=== PATIENT | female | born 1955 | race Caucasian/White ===

== ENCOUNTER 2019-11-18 14:05 | Outpatient (REF) | payer OTHER, SELFPAY ==
[2019-11-18 15:27] LABS: Abs Immature Grans 0.07 k/cumm (0.0-0.09); Absolute Basophil Count 0.04 k/cumm (0.0-0.2); Absolute Eosinophil Count 0.16 k/cumm (0.0-0.7); Absolute Lymphocyte Count 1.73 k/cumm (1.2-3.4); Absolute Monocyte Count 0.57 k/cumm (0.11-0.7); Absolute Neutrophil Count 7.23 k/cumm (1.2-6.7); Basophils % 0.4; Eosinophils % 1.6; HCT 36.9 % (36.0-46.0); HGB 11.2 g/dL (12.0-15.5); Immature Grans % 0.7 %; Lymphocytes % 17.7; Mean Corp. HGB Concentration 30.4 g/dL (32.0-36.0); Mean Corpuscular Hemoglobin 29.7 pg (27.0-33.0); Mean Corpuscular Volume 97.9 fL (80-95); Mean Platelet Volume 9.4 fL (8.0-11.0); Monocytes % 5.8; Neutrophils % 73.8; Platelet Count 660 x1000/uL (130-400); RBC 3.77 m/cumm (4.00-5.20); RBC Distribution Width 14.1 % (11.7-14.6)
[2019-11-18 15:34] LABS: ALT 28 U/L (14-59); AST 22 U/L (15-37); Alkaline Phosphatase 94 U/L (46-116); Anion Gap 10.1 mmol/L (3-11); BUN 16 mg/dL (7-18); Bilirubin, Total 0.4 mg/dL (0.2-1.0); C-Reactive Protein 11.17 mg/dL (0.0-0.3); CO2 26.9 mmol/L (21.0-32.0); CREATININE 0.63 mg/dL (0.55-1.02); Calcium 10.1 mg/dL (8.5-10.1); Chloride 103 mmol/L (98-107); Glucose 119 mg/dL (74-106); Potassium 4.9 mmol/L (3.5-5.1); Sodium 140 mmol/L (136-145); Total Protein 6.8 g/dL (6.4-8.2)
[2019-11-18 16:46] LABS: RBC Morphology Normal
[2019-11-18 19:04] LABS: ESR 103 mm/hr (0-30)
== END 2019-11-18 14:25 ==
LOC: LBN 14:05
PROVIDERS: PCP Orthopaedic Surgery Adult Reconstructive Orthopaedic Surgery; Visit Provider Internal Medicine Infectious Disease
DX: T84.53XD Infection and inflammatory reaction due to internal right knee prosthesis, subsequent encounter (principal)
CPT/HCPCS: 80053; 85652; 85025; 86140

== ENCOUNTER 2019-11-25 12:23 | Outpatient (REF) | payer OTHER, SELFPAY ==
[2019-11-25 13:31] LABS: Abs Immature Grans 0.06 k/cumm (0.0-0.09); Absolute Basophil Count 0.04 k/cumm (0.0-0.2); Absolute Eosinophil Count 0.32 k/cumm (0.0-0.7); Absolute Lymphocyte Count 0.97 k/cumm (1.2-3.4); Absolute Neutrophil Count 4.05 k/cumm (1.2-6.7); Basophils % 0.7; Eosinophils % 5.5; HCT 37.7 % (36.0-46.0); HGB 11.5 g/dL (12.0-15.5); Lymphocytes % 16.6; Mean Corp. HGB Concentration 30.5 g/dL (32.0-36.0); Mean Corpuscular Hemoglobin 29.9 pg (27.0-33.0); Mean Corpuscular Volume 98.2 fL (80-95); Mean Platelet Volume 9.9 fL (8.0-11.0); Monocytes % 6.8; Neutrophils % 69.4; Platelet Count 482 x1000/uL (130-400); RBC 3.84 m/cumm (4.00-5.20); White Blood Cell Count 5.84 k/cumm (4.4-10.8)
[2019-11-25 14:49] LABS: ALT 28 U/L (14-59); AST 22 U/L (15-37); Albumin 3.1 g/dL (3.4-5.0); Alkaline Phosphatase 86 U/L (46-116); Anion Gap 9.6 mmol/L (3-11); BUN 15 mg/dL (7-18); Bilirubin, Total 0.3 mg/dL (0.2-1.0); C-Reactive Protein 4.34 mg/dL (0.0-0.3); CO2 27.4 mmol/L (21.0-32.0); CREATININE 0.73 mg/dL (0.55-1.02); Calcium 10.1 mg/dL (8.5-10.1); Chloride 104 mmol/L (98-107); Glucose 96 mg/dL (74-106); Potassium 4.9 mmol/L (3.5-5.1); Sodium 141 mmol/L (136-145); Total Protein 6.7 g/dL (6.4-8.2)
[2019-11-25 15:03] LABS: ESR 61 mm/hr (0-30)
== END 2019-11-25 12:43 ==
LOC: LBN 12:23
PROVIDERS: PCP Orthopaedic Surgery Adult Reconstructive Orthopaedic Surgery; Visit Provider Internal Medicine Infectious Disease
DX: T84.53XD Infection and inflammatory reaction due to internal right knee prosthesis, subsequent encounter (principal); M25.561 Pain in right knee
CPT/HCPCS: 80053; 85652; 85025; 86140

== ENCOUNTER 2019-12-02 11:32 | Outpatient (REF) | payer OTHER, SELFPAY ==
[2019-12-02 11:43] LABS: Abs Immature Grans 0.02 k/cumm (0.0-0.09); Absolute Basophil Count 0.09 k/cumm (0.0-0.2); Absolute Lymphocyte Count 1.39 k/cumm (1.2-3.4); Absolute Monocyte Count 0.38 k/cumm (0.11-0.7); Absolute Neutrophil Count 3.24 k/cumm (1.2-6.7); Basophils % 1.7; Eosinophils % 3.8; HCT 38.1 % (36.0-46.0); HGB 11.6 g/dL (12.0-15.5); Immature Grans % 0.4 %; Lymphocytes % 26.1; Mean Corp. HGB Concentration 30.4 g/dL (32.0-36.0); Mean Corpuscular Hemoglobin 29.7 pg (27.0-33.0); Mean Corpuscular Volume 97.4 fL (80-95); Monocytes % 7.1; Neutrophils % 60.9; Platelet Count 524 x1000/uL (130-400); RBC 3.91 m/cumm (4.00-5.20); White Blood Cell Count 5.32 k/cumm (4.4-10.8)
[2019-12-02 12:03] LABS: ALT 36 U/L (14-59); AST 15 U/L (15-37); Albumin 3.2 g/dL (3.4-5.0); Alkaline Phosphatase 84 U/L (46-116); Anion Gap 10.8 mmol/L (3-11); Bilirubin, Total 0.3 mg/dL (0.2-1.0); C-Reactive Protein 4.02 mg/dL (0.0-0.3); CO2 25.2 mmol/L (21.0-32.0); CREATININE 0.69 mg/dL (0.55-1.02); Chloride 104 mmol/L (98-107); Glucose 112 mg/dL (74-106); Potassium 4.6 mmol/L (3.5-5.1); Sodium 140 mmol/L (136-145); Total Protein 6.8 g/dL (6.4-8.2)
[2019-12-02 12:13] LABS: BUN 24 mg/dL (7-18)
[2019-12-02 13:24] LABS: ESR 59 mm/hr (0-30)
== END 2019-12-02 11:52 ==
LOC: LBN 11:32
PROVIDERS: PCP Orthopaedic Surgery Adult Reconstructive Orthopaedic Surgery; Visit Provider Internal Medicine Infectious Disease
DX: M25.561 Pain in right knee (principal); Z96.651 Presence of right artificial knee joint; T84.53XD Infection and inflammatory reaction due to internal right knee prosthesis, subsequent encounter
CPT/HCPCS: 80053; 85652; 85025; 86140

== ENCOUNTER 2019-12-09 18:48 | Outpatient (REF) | payer OTHER, SELFPAY ==
[2019-12-09 15:06] LABS: Abs Immature Grans 0.01 k/cumm (0.0-0.09); Absolute Basophil Count 0.08 k/cumm (0.0-0.2); Absolute Eosinophil Count 0.12 k/cumm (0.0-0.7); Absolute Lymphocyte Count 1.22 k/cumm (1.2-3.4); Absolute Monocyte Count 0.47 k/cumm (0.11-0.7); Absolute Neutrophil Count 3.23 k/cumm (1.2-6.7); Basophils % 1.6; Eosinophils % 2.3; HCT 39.8 % (36.0-46.0); HGB 12.1 g/dL (12.0-15.5); Immature Grans % 0.2 %; Lymphocytes % 23.8; Mean Corp. HGB Concentration 30.4 g/dL (32.0-36.0); Mean Corpuscular Hemoglobin 29.9 pg (27.0-33.0); Mean Corpuscular Volume 98.3 fL (80-95); Mean Platelet Volume 10.2 fL (8.0-11.0); Monocytes % 9.2; Neutrophils % 62.9; Platelet Count 479 x1000/uL (130-400); RBC 4.05 m/cumm (4.00-5.20); RBC Distribution Width 14.2 % (11.7-14.6); White Blood Cell Count 5.13 k/cumm (4.4-10.8)
[2019-12-09 15:13] LABS: ALT 38 U/L (14-59); AST 21 U/L (15-37); Albumin 3.4 g/dL (3.4-5.0); Alkaline Phosphatase 82 U/L (46-116); Anion Gap 5.9 mmol/L (3-11); BUN 21 mg/dL (7-18); Bilirubin, Total 0.3 mg/dL (0.2-1.0); C-Reactive Protein 1.51 mg/dL (0.0-0.3); CO2 29.1 mmol/L (21.0-32.0); CREATININE 0.67 mg/dL (0.55-1.02); Calcium 9.9 mg/dL (8.5-10.1); Chloride 104 mmol/L (98-107); Glucose 92 mg/dL (74-106); Potassium 4.7 mmol/L (3.5-5.1); Sodium 139 mmol/L (136-145); Total Protein 6.6 g/dL (6.4-8.2)
[2019-12-09 15:51] LABS: ESR 29 mm/hr (0-30)
== END 2019-12-09 19:08 ==
LOC: LBN 18:48
PROVIDERS: PCP Orthopaedic Surgery Adult Reconstructive Orthopaedic Surgery; Visit Provider Internal Medicine Infectious Disease
DX: M25.561 Pain in right knee (principal); Z96.651 Presence of right artificial knee joint; T84.53XD Infection and inflammatory reaction due to internal right knee prosthesis, subsequent encounter
CPT/HCPCS: 80053; 85652; 85025; 86140

== ENCOUNTER 2019-12-16 10:32 | Outpatient (REF) | payer OTHER, SELFPAY ==
[2019-12-16 11:58] LABS: HCT 40.5 % (36.0-46.0); HGB 12.4 g/dL (12.0-15.5); Mean Corp. HGB Concentration 30.6 g/dL (32.0-36.0); Mean Corpuscular Hemoglobin 29.7 pg (27.0-33.0); Mean Corpuscular Volume 97.1 fL (80-95); Mean Platelet Volume 10.5 fL (8.0-11.0); Platelet Count 414 x1000/uL (130-400); RBC 4.17 m/cumm (4.00-5.20)
[2019-12-16 12:19] LABS: ALT 27 U/L (14-59); AST 20 U/L (15-37); Albumin 3.4 g/dL (3.4-5.0); Alkaline Phosphatase 89 U/L (46-116); Anion Gap 8.6 mmol/L (3-11); BUN 16 mg/dL (7-18); Bilirubin, Total 0.2 mg/dL (0.2-1.0); C-Reactive Protein 0.98 mg/dL (0.0-0.3); CO2 26.4 mmol/L (21.0-32.0); CREATININE 0.69 mg/dL (0.55-1.02); Calcium 10.1 mg/dL (8.5-10.1); Chloride 106 mmol/L (98-107); Glucose 88 mg/dL (74-106); Sodium 141 mmol/L (136-145); Total Protein 6.6 g/dL (6.4-8.2)
[2019-12-16 12:48] LABS: ESR 22 mm/hr (0-30)
== END 2019-12-16 10:52 ==
LOC: LBN 10:32
PROVIDERS: PCP Orthopaedic Surgery Adult Reconstructive Orthopaedic Surgery; Visit Provider Internal Medicine Infectious Disease
DX: M25.561 Pain in right knee (principal); Z96.651 Presence of right artificial knee joint; T84.53XD Infection and inflammatory reaction due to internal right knee prosthesis, subsequent encounter
CPT/HCPCS: 80053; 85027; 85652; 86140

== ENCOUNTER 2020-02-28 01:57 | Outpatient (CLI) | payer OTHER, SELFPAY ==
[2020-02-28 16:45] LABS: Abs Immature Grans 0.02 k/cumm (0.0-0.09); Absolute Basophil Count 0.04 k/cumm (0.0-0.2); Absolute Eosinophil Count 0.13 k/cumm (0.0-0.7); Absolute Monocyte Count 0.45 k/cumm (0.11-0.7); Absolute Neutrophil Count 3.29 k/cumm (1.2-6.7); Basophils % 0.7; Eosinophils % 2.3; HCT 40.4 % (36.0-46.0); Immature Grans % 0.3 %; Lymphocytes % 31.4; Mean Corp. HGB Concentration 32.2 g/dL (32.0-36.0); Mean Corpuscular Hemoglobin 30.4 pg (27.0-33.0); Mean Corpuscular Volume 94.6 fL (80-95); Mean Platelet Volume 9.9 fL (8.0-11.0); Monocytes % 7.9; Neutrophils % 57.4; Platelet Count 312 x1000/uL (130-400); RBC 4.27 m/cumm (4.00-5.20); RBC Distribution Width 13.6 % (11.7-14.6); White Blood Cell Count 5.73 k/cumm (4.4-10.8)
[2020-02-28 18:45] LABS: ESR 12 mm/hr (0-30)
[2020-02-28 19:23] LABS: ALT 34 U/L (14-59); AST 22 U/L (15-37); Albumin 3.4 g/dL (3.4-5.0); Alkaline Phosphatase 102 U/L (46-116); Anion Gap 5.7 mmol/L (3-11); BUN 23 mg/dL (7-18); Bilirubin, Total 0.2 mg/dL (0.2-1.0); C-Reactive Protein 1.74 mg/dL (0.0-0.3); CO2 31.3 mmol/L (21.0-32.0); CREATININE 0.63 mg/dL (0.55-1.02); Calcium 10.1 mg/dL (8.5-10.1); Chloride 102 mmol/L (98-107); Glucose 86 mg/dL (74-106); Potassium 4.7 mmol/L (3.5-5.1); Sodium 139 mmol/L (136-145); Total Protein 6.5 g/dL (6.4-8.2)
== END 2020-02-28 02:17 ==
PROVIDERS: PCP Orthopaedic Surgery Adult Reconstructive Orthopaedic Surgery; Visit Provider Internal Medicine
DX: T84.53XA Infection and inflammatory reaction due to internal right knee prosthesis, initial encounter (principal); A49.01 Methicillin susceptible Staphylococcus aureus infection, unspecified site
CPT/HCPCS: 36415; 80053; 85652; 85025; 86140

== ENCOUNTER 2020-08-07 02:19 | Outpatient (CLI) | payer OTHER, SELFPAY ==
[2020-08-07 11:26] LABS: Abs Immature Grans 0.03 10^3/uL (0.0-0.06); Absolute Basophil Count 0.06 10^3/uL (0.0-0.2); Absolute Eosinophil Count 0.18 10^3/uL (0.0-0.7); Absolute Lymphocyte Count 1.43 10^3/uL (1.2-3.4); Absolute Monocyte Count 0.34 10^3/uL (0.1-0.8); Absolute Neutrophil Count 2.95 10^3/uL (1.2-6.7); Basophils % 1.2; Eosinophils % 3.6; HCT 43.7 % (36.0-46.0); HGB 13.8 g/dL (11.2-15.7); Immature Grans % 0.6; Lymphocytes % 28.7; MCH 30.5 pg (27.0-33.0); MCHC 31.6 % (32.0-36.0); MCV 96.5 fL (80-95); MPV 9.7 fL (8.0-11.0); Monocytes % 6.8; Neutrophils % 59.1; Nucleated RBC 0 %; Platelet Count 274 10^3/uL (130-400); RBC 4.53 10^6/uL (3.93-5.22); RDW 12.8 % (11.7-14.6); RDW-SD 45.4 fL; WBC 4.99 10^3/uL (4.4-10.8)
[2020-08-07 12:16] LABS: ALT 26 U/L (14-59); AST 19 U/L (15-37); Albumin 3.6 g/dL (3.4-5.0); Alkaline Phosphatase 82 U/L (46-116); Anion Gap 7.6 mmol/L (3-11); BUN 22 mg/dL (7-18); Bilirubin, Total 0.5 mg/dL (0.2-1.0); C-Reactive Protein 0.12 mg/dL (0.0-0.3); CO2 28.4 mmol/L (21.0-32.0); CREATININE 0.73 mg/dL (0.55-1.02); Chloride 104 mmol/L (98-107); Glucose 91 mg/dL (74-106); Potassium 4.5 mmol/L (3.5-5.1); Sodium 140 mmol/L (136-145); Total Protein 6.4 g/dL (6.4-8.2)
[2020-08-07 12:23] LABS: Calcium 10.2 mg/dL (8.5-10.1)
[2020-08-07 13:03] LABS: ESR 10 mm/hr (0-30)
== END 2020-08-07 02:39 ==
PROVIDERS: PCP Orthopaedic Surgery Adult Reconstructive Orthopaedic Surgery; Visit Provider Internal Medicine
DX: T84.53XA Infection and inflammatory reaction due to internal right knee prosthesis, initial encounter (principal); Z96.651 Presence of right artificial knee joint; A49.01 Methicillin susceptible Staphylococcus aureus infection, unspecified site; Z79.2 Long term (current) use of antibiotics
CPT/HCPCS: 36415; 80053; 85652; 85025; 86140

== ENCOUNTER 2020-10-15 01:25 | Outpatient (CLI) | payer OTHER, SELFPAY ==
[2020-10-15 07:55] LABS: Abs Immature Grans 0.03 10^3/uL (0.0-0.06); Absolute Basophil Count 0.05 10^3/uL (0.0-0.2); Absolute Eosinophil Count 0.24 10^3/uL (0.0-0.7); Absolute Lymphocyte Count 1.72 10^3/uL (1.2-3.4); Absolute Monocyte Count 0.31 10^3/uL (0.1-0.8); Eosinophils % 4.8; HCT 44.1 % (36.0-46.0); HGB 13.6 g/dL (11.2-15.7); Immature Grans % 0.6; Lymphocytes % 34.7; MCH 29.8 pg (27.0-33.0); MCHC 30.8 % (32.0-36.0); MCV 96.7 fL (80-95); MPV 9.5 fL (8.0-11.0); Monocytes % 6.3; Neutrophils % 52.6; Nucleated RBC 0 %; Platelet Count 303 10^3/uL (130-400); RBC 4.56 10^6/uL (3.93-5.22); RDW 12.8 % (11.7-14.6); RDW-SD 46.2 fL; WBC 4.95 10^3/uL (4.4-10.8)
[2020-10-15 09:05] LABS: ALT 27 U/L (14-59); AST 21 U/L (15-37); Albumin 3.7 g/dL (3.4-5.0); Alkaline Phosphatase 76 U/L (46-116); Anion Gap 7.9 mmol/L (3-11); BUN 20 mg/dL (7-18); Bilirubin, Total 0.4 mg/dL (0.2-1.0); CO2 28.1 mmol/L (21.0-32.0); CREATININE 0.69 mg/dL (0.55-1.02); Calcium 9.8 mg/dL (8.5-10.1); Calculated LDL 124 mg/dL (<100); Chloride 106 mmol/L (98-107); Cholesterol 207 mg/dL (<200); Glucose 95 mg/dL (74-106); HDL Cholesterol 73 mg/dL (40-60); Potassium 4.7 mmol/L (3.5-5.1); Sodium 142 mmol/L (136-145); TSH (W/Ref FT4) 3.81 uIU/mL (0.36-3.74); Total Protein 6.5 g/dL (6.4-8.2); Triglyceride 54 mg/dL (<150)
[2020-10-15 09:19] LABS: Vitamin D 25 Total 13.1 ng/ml (30-100)
[2020-10-15 09:27] LABS: FREE T4 1.04 ng/dL (0.76-1.46)
== END 2020-10-15 01:45 ==
PROVIDERS: Visit Provider General Practice
DX: Z00.00 Encounter for general adult medical examination without abnormal findings (principal); Z13.220 Encounter for screening for lipoid disorders; Z13.29 Encounter for screening for other suspected endocrine disorder; Z13.21 Encounter for screening for nutritional disorder
CPT/HCPCS: 36415; 80053; 80061; 82306; 84439; 84443; 85025

== ENCOUNTER 2020-10-15 09:57 | Outpatient (REF) | payer OTHER, SELFPAY ==
--- NOTE | 2020-10-15 09:00 | PAPFT_PTH ---
PATIENT: Seema King LOC: [facility] U#:[id number] AGE/SX: 65/F ROOM: RE10/15/[address]: Verito Barrientos : 1955 BED: DIS: 10/15/2020 SPEC #: [id number] RECD: 10/15/20 13:03 STATUS: MARQUES BYNUM #: [id number] TAYLER: 10/15/20 09:[address]: Verito Barrientos DEPT: [facility] Cytology RECD BY: Britta Savage ENTERED: 10/15/20 13:03 SP TYPE: PAPFT OT DR: Unknown,Unknown Tissues: 1 - CX/ENDOCX FOR PAP SMEARS Procedures: PAP THIN PREP/[facility] Screening HPV DNA PROBE Comments: [id number]
== END 2020-10-15 10:17 ==
LOC: NCHCN 09:57
PROVIDERS: Visit Provider Obstetrics & Gynecology Gynecology
DX: Z12.4 Encounter for screening for malignant neoplasm of cervix (principal); Z11.51 Encounter for screening for human papillomavirus (HPV)
CPT/HCPCS: 88142; 87624

== ENCOUNTER 2020-11-10 01:14 | Outpatient (CLI) | payer MEDICARE, BC, SELFPAY ==
--- NOTE | 2020-11-10 17:00 | DI.MAMMO_ITS ---
EXAM: MG MAMMO SCREENING CLINICAL HISTORY: screening. TECHNIQUE: Bilateral full field digital CC and MLO mammographic images were obtained with 3D tomosyn thesis and utilizing computer aided detection (CAD). COMPARISON: Prior mammograms dating back to 2010, the most recent being March 2017. FINDINGS: There are no spiculated masses nor malignant appearing microcalcification groups. There is no signif icant architectural distortion nor skin thickening-retraction. IMPRESSION: No radiographic evidence of malignancy. BI-RADS Category 1 - Negative Breast Density - Category A - Almost entirely fatty Breast density Category C or D implies that the patient has dense breast tissue. Dense breast tissue can make it harder to find cancer on a mammogram. Dense breast tissue is also associated with an incr eased risk of breast cancer. This information about the result of the mammogram report was provided to the patient to raise their awareness. Use this report when you speak with the patient about their risks for breast cancer, which includes their family history. At that time, you may recommend additional screening tests (Ultrasoun d or MRI) as these tests may add significant information. A negative radiographic report should not delay biopsy if a dominant or clinically suspicious mass is present. Up to ten percent of cancers are not identified on mammography. A negative report may reinforce clinical impression. Adenosis and dense breasts may obscure an underlying neoplasm. False positive reports average 6 to 10%. Patient will receive a letter notifying them of these results.
== END 2020-11-10 01:34 ==
PROVIDERS: PCP General Practice; Visit Provider Obstetrics & Gynecology Gynecology
DX: Z12.31 Encounter for screening mammogram for malignant neoplasm of breast (principal)
CPT/HCPCS: 77063; 77067

== ENCOUNTER 2021-07-06 04:47 | Outpatient (CLI) | payer MEDICARE, BC, SELFPAY ==
[2021-07-06 16:01] LABS: Abs Immature Grans 0.01 10^3/uL (0.0-0.06); Absolute Basophil Count 0.06 10^3/uL (0.0-0.2); Absolute Eosinophil Count 0.26 10^3/uL (0.0-0.7); Absolute Lymphocyte Count 1.84 10^3/uL (1.2-3.4); Absolute Monocyte Count 0.38 10^3/uL (0.1-0.8); Absolute Neutrophil Count 3.73 10^3/uL (1.2-6.7); Eosinophils % 4.1; HCT 42.9 % (36.0-46.0); HGB 13.4 g/dL (11.2-15.7); Immature Grans % 0.2; Lymphocytes % 29.3; MCH 29.6 pg (27.0-33.0); MCHC 31.2 % (32.0-36.0); MCV 94.9 fL (80-95); MPV 9.9 fL (8.0-11.0); Monocytes % 6.1; Neutrophils % 59.3; Nucleated RBC 0 %; Platelet Count 303 10^3/uL (130-400); RBC 4.52 10^6/uL (3.93-5.22); RDW-SD 45.3 fL; WBC 6.28 10^3/uL (4.4-10.8)
[2021-07-06 16:06] LABS: ESR 9 mm/hr (0-30)
[2021-07-06 17:19] LABS: ALT 34 U/L (14-59); AST 21 U/L (15-37); Albumin 3.9 g/dL (3.4-5.0); Alkaline Phosphatase 73 U/L (46-116); BUN 24 mg/dL (7-18); Bilirubin, Total 0.2 mg/dL (0.2-1.0); C-Reactive Protein 0.31 mg/dL (0.0-0.3); CREATININE 0.9 mg/dL (0.55-1.02); Calcium 10.6 mg/dL (8.5-10.1); Chloride 104 mmol/L (98-107); Glucose 110 mg/dL (74-106); Potassium 4.8 mmol/L (3.5-5.1); Sodium 139 mmol/L (136-145); Total Protein 6.9 g/dL (6.4-8.2)
== END 2021-07-06 04:48 | disposition home or self-care (01) ==
LOC: LBO 04:47
PROVIDERS: PCP General Practice; Visit Provider Internal Medicine
DX: A49.1 Streptococcal infection, unspecified site (principal); T84.53XA Infection and inflammatory reaction due to internal right knee prosthesis, initial encounter; Z96.651 Presence of right artificial knee joint
CPT/HCPCS: 36415; 80053; 85652; 85025; 86140

== ENCOUNTER 2023-09-29 11:11 | Outpatient (REF) | payer MEDICARE, BC, SELFPAY ==
--- NOTE | 2023-09-29 10:30 | ENDOMET_PTH ---
PATIENT: Seema King LOC: [facility] U#:[id number] AGE/SX: 68/F ROOM: RE09/29/[address]: Verito Barrientos : 1955 BED: DIS: 09/29/2023 SPEC #: [id number] RECD: 09/29/23 12:29 STATUS: MARQUES REQ #: [id number] TAYLER: 09/29/23 10:[address]: Verito Barrientos DEPT: Surgical Specimen RECD BY: Britta Savage ENTERED: 09/29/23 12:30 SP TYPE: Endomet OTHR DR: Susie Gibbs Tissues: 1 - ENDOMETRIUM BX/ALINE Procedures: GROSS AND MICRO LEVEL 4 Comments: [id number]
== END 2023-09-29 11:12 | disposition home or self-care (01) ==
LOC: LBN 11:11
PROVIDERS: PCP General Practice; Visit Provider Obstetrics & Gynecology Gynecology
DX: N84.0 Polyp of corpus uteri (principal)
CPT/HCPCS: 88305

== ENCOUNTER 2025-10-21 10:22 | Outpatient (CLI) | payer MEDICARE, BC, SELFPAY ==
--- NOTE | 2025-10-21 06:00 | DI.RAD_ITS ---
Exam(s) XR PAIN CLINIC CERVICAL SP 2V EXAM: XR PAIN CLINIC CERVICAL SP 2V CLINICAL HISTORY: Dx: Cervical Spondylosis TECHNIQUE: 2D and realtime digital imaging was performed. Radiologist not present. CONTRAST MATERIAL: None. COMPARISON: No exams were available for comparison FINDINGS: Fluoroscopy was provided for pain management therapy. Cervical spine injections Please refer to procedure report or details. Radiation Exposure Index: Ka,r=6.92 mGy IMPRESSION: As above. RADIATION DOSE DELIVERED:
[2025-10-21 10:20] VITALS: BP 134/83; PULSE 86; RESP 18; TEMP 36.2; O2SAT 98
--- NOTE | 2025-10-21 10:53 | PDOC.PAIN ---
Date of service: 10/21/25 Time of Service: 11:15 Pain Managment Procedure Note Procedure Note Procedure Note: Cervical Medial Branch Block ? Location: Left Medial Branches ? 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 Post-procedure Diagnosis:? The same as above ? Levels:C4,5,6 ? Sedation: None ? Estimated blood loss:? less than 2 ml ? Surgeon:? Chaim Cisneros MD COMMENT: Patient with left-sided neck pain and cervical spondylosis, ? Procedure Detail:? The procedure and potential risks were explained to the patient and informed written consent was obtained. The patient was escorted to the procedure room and placed in the RIGHT lateral decubitus position. Pillows were utilized for proper positioning and comfort. Time out was performed in the procedure room with nursing staff confirming the patient's identity, procedure to be performed, allergies, and any blood thinning or anti-platelet medications. The patient's neck and upper back was prepped with ChloraPrep and draped in a sterile fashion. Sterile technique was maintained throughout the procedure.? Sterile gloves were used, a face mask was worn, and new single dose vials of all medications were used with the top being swabbed with alcohol and given time to dry prior to withdrawal of medication. A lateral fluoroscopic view was used to identify target of mid articular pillar. With fluoroscopic guidance, a 25 gauge Quincke needle was advanced to the articular waste. The distal needle tip was then advanced under lateral fluoroscopic view along the expected course of the LEFT C4,5,6 medial branch to the mid-portion of the trapezoid well posterior to the exiting nerve root.? 0.5 ml of 0.5% bupivacaine was then injected through each needle tip.? The needles were then gently removed. The patient tolerated the procedure well, and was transported to the recovery area for observation and discharge instructions. Permanent images were saved and recorded. Follow-up:? The patient will return in1- 2 weeks for confirmatory CMBBs if they? meet the criteria from today's procedure lasting for at least 2 hours.? PRE PROCEDURE PAIN SCORE: 7/10 POST PROCEDURE PAIN SCORE: 4/10 COMMENT: Before the patient left patient had 40% pain relief. 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
[2025-10-21 11:01] VITALS: PULSE 83; O2SAT 97
[2025-10-21 11:10] VITALS: PULSE 80; O2SAT 95
[2025-10-21] MEDS: Nerve Block Tray 1 EACH MC (11:13)
[2025-10-21] MEDS: Bupivacaine 0.5% Pres-Free 10 ML VIAL IJ (11:14)
== END 2025-10-21 10:23 | disposition home or self-care (01) ==
LOC: PC 10:23
PROVIDERS: PCP General Practice; Visit Provider Anesthesiology Pain Medicine
DX: M54.2 Cervicalgia (principal); M47.812 Spondylosis without myelopathy or radiculopathy, cervical region
CPT/HCPCS: 64490; 64491; 72040; J0665